=== PATIENT | female | born 1995 | race Two or more races ===

== ENCOUNTER 2018-01-08 21:23 | Emergency (ER) | payer MEDICAID, OTHER ==
[2018-01-08] MEDS ORDERED: ACETAMINOPHEN 325 MG TABLET PO ONE (21:42)
[2018-01-08] MEDS ORDERED: CYCLOBENZAPRINE HCL 10 MG TABLET PO ONE (23:12)
[2018-01-08] MEDS ORDERED: HYDROCODONE/ACETAMINOPHEN 5-325 MG (6 TAB/ER DISP) PO PRN (23:12)
--- NOTE | 2018-01-08 23:15 | ER Document Report ---
HPI - HPI Patient complains to provider of: Thigh pain Onset: Just prior to arrival Onset/Duration: Sudden Quality of pain: Sharp Pain Level: 3 Context: Patient states she was wrestling around with a friend and felt a sudden pull in the back of her right thigh. Patient complains of pain with ambulation since then. Associated Symptoms: Other - Right posterior thigh pain Exacerbated by: Standing, Movement, Walking Relieved by: Denies Similar symptoms previously: No Recently seen / treated by doctor: No - ROS ROS below otherwise negative: Yes Systems Reviewed and Negative: Yes All other systems reviewed and negative - CONSTITUTIONAL Constitutional: DENIES: Fever, Chills - NEURO Neurology: DENIES: Weakness - GASTROINTESTINAL Gastrointestinal: DENIES: Nausea - REPRODUCTIVE Reproductive: DENIES: : - MUSCULOSKELETAL Musculoskeletal: REPORTS: Extremity pain. 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 Denies: Hx Heart Attack, Hx Hypertension Pulmonary Medical History: Reports: Hx Pneumonia Denies: Hx Asthma, Hx Bronchitis, Hx COPD Neurological Medical History: Reports: Hx Migraine, Hx Seizures - 09/23/12 Musculoskeltal Medical History: Denies Hx Arthritis Psychiatric Medical History: Reports: Hx Anxiety, Hx Depression, Hx Post Traumatic Stress Disorder Past Surgical History: Reports: Hx Cholecystectomy, Hx Oral Surgery - Immunizations Immunizations up to date: Yes Hx Diphtheria, Pertussis, Tetanus Vaccination: Yes Vertical Provider Document - CONSTITUTIONAL Agree With Documented VS: Yes Exam Limitations: No Limitations General Appearance: WD/WN, No Apparent Distress - INFECTION CONTROL TRAVEL OUTSIDE OF THE [place] IN LAST 30 DAYS: No - HEENT HEENT: Atraumatic, Normocephalic - NECK Neck: Normal Inspection - RESPIRATORY Respiratory: No Respiratory Distress - CARDIOVASCULAR Pulses: Normal: Posterior tibial, Dorsalis pedis - BACK Back: Normal Inspection - MUSCULOSKELETAL/EXTREMETIES Musculoskeletal/Extremeties: MAEW, Tender - Right posterior thigh tenderness over biceps femoris, no deformity, no ecchymosis. Compartment soft to palpation , No Edema. negative: Eccymosis Notes: Tenderness increases with extension of right knee - NEURO Level of Consciousness: Awake, Alert, Appropriate Motor/Sensory: No Motor Deficit - DERM Integumentary: Warm, Dry, No Rash Discharge - Discharge Clinical Impression: Muscle strain Condition: Stable Disposition: HOME, SELF-CARE Instructions: Use of Crutches ([facility]), Muscle Relaxers ([facility]), Muscle Strain ([facility]) , Oral Narcotic Medication ([facility]) Additional Instructions: Return immediately for any new or worsening symptoms Followup with your primary care provider, call tomorrow to make a followup appointment Weightbearing as tolerated Follow-up with orthopedic doctor for any continued pain or problems Prescriptions: Cyclobenzaprine HCl [Flexeril 10 Mg Tablet] 10 mg PO TID #15 tablet Naproxen [Naprosyn 250 Nmg Tablet] 1 tab PO BID #14 tablet Referrals: [facility] ([facility]) [Provider Group] - Follow up as needed
[2018-01-09 00:01] VITALS: BP 114/70
== END 2018-01-09 00:01 | disposition home or self-care (01) ==
LOC: ER 21:23
DX: S76.911A Strain of unspecified muscles, fascia and tendons at thigh level, right thigh, initial encounter (principal); X50.0XXA Overexertion from strenuous movement or load, initial encounter; Z90.49 Acquired absence of other specified parts of digestive tract; Y93.83 Activity, rough housing and horseplay
CPT/HCPCS: 99283

== ENCOUNTER 2018-07-12 19:03 | Emergency (ER) | payer SELFPAY ==
[2018-07-12] MEDS ORDERED: KETOROLAC TROMETHAMINE INJ/PF 30 MG/1 ML SDV IV ONE (20:35)
[2018-07-12] MEDS ORDERED: ONDANSETRON HCL INJ/PF 4 MG/2 ML SDV IV ONE (20:35)
--- NOTE | 2018-07-12 20:39 | ER Document Report ---
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 Denies fevers. Subjective chills. Her porphyria attacks used to consist of bone pain and this feels similar to that but not exactly the same. She is currently out of care for her porphyria, does not know which kind of porphyria she has, and says that she has no other major medical problems. TRAVEL OUTSIDE OF THE [place] IN LAST 30 DAYS: No - Related Data Allergies/Adverse Reactions: No Known Allergies Allergy (Verified 07/12/18 19:08) Past Medical History - Social History Smoking Status: Never Smoker Family History: None - Past Medical History Cardiac Medical History: Denies: Hx Heart Attack, Hx Hypertension Pulmonary Medical History: Reports: Hx Pneumonia Denies: Hx Asthma, Hx Bronchitis, Hx COPD Neurological Medical History: Reports: Hx Migraine, Hx Seizures - 09/23/12 Renal/ Medical History: Denies: Hx Peritoneal Dialysis Musculoskeletal Medical History: Denies Hx Arthritis Psychiatric Medical History: Reports: Hx Anxiety, Hx Depression, Hx Post Traumatic Stress Disorder Past Surgical History: Reports: Hx Cholecystectomy, Hx Oral Surgery - Immunizations Immunizations up to date: Yes Hx Diphtheria, Pertussis, Tetanus Vaccination: Yes Review of Systems - Review of Systems Notes: REVIEW OF SYSTEMS GEN: Denies fever, positive chills ENT: Denies sore throat, nasal discharge, ear pain EYES: Denies blurry vision, eye pain, discharge CV: Left sided reproducible chest pain, palpitations, denies edema RESP: Denies cough, shortness of breath, wheezing GI: Denies abdominal pain, nausea, vomiting, diarrhea MSK: Myalgias, SKIN: Denies rash, skin lesions LYMPH: Denies swollen glands/lymph nodes NEURO: Denies headache, focal weakness or numbness, dizziness PSYCH: Denies depression, suicidal or homicidal ideation PHYSICAL EXAMINATION General: No acute distress, well-nourished Head: Atraumatic, normocephalic ENT: Mouth normal, oropharynx moist, mild tracheal erythema, no exudates or tonsillar enlargement Eyes: Conjunctiva normal, pupils equal, lids normal Neck: No JVD, supple, no guarding CVS: Normal rate, regular rhythm, no murmurs left chest tenderness without crepitus Resp: No resp distress, equal and normal breath sounds bilaterally GI: Nondistended, soft, no tenderness to palpation, no rebound or guarding Ext: No deformities, no edema, normal range of motion in upper and lower ext Back: No CVA or midline TTP Skin: No rash, warm Lymphatic: No lymphadeopathy noted Neuro: Awake, alert. Face symmetric. GCS 15. Physical Exam - Vital signs Vitals: Temp Pulse Resp BP Pulse Ox 99.8 F 125 H 18 108/42 L 98 07/12/18 19:25 07/12/18 19:25 07/12/18 19:25 07/12/18 19:25 07/12/18 19:25 Course - Re-evaluation Re-evalutation: Patient with a history of porphyria unknown type presents with myalgias nausea her typical migraines pelvic pain and back pain. She has some tachycardia but is afebrile. Her exam is reassuring in terms of meningitis mass or other neurologic catastrophe. Her lungs are clear and her chest pain is reproducible. EKG was done in triage which is negative. We will do chest x-ray to rule out pneumonia influenza swab, and treated with Toradol Reglan and fluids. 07/12/18 22:08 Patient's lab workup is negative except for a mild leukocytosis. She got much relief with Toradol and fluids but still had mild headache so was given Reglan. About 10:05 PM she became quite active the second anxious and was given Benadryl. 07/12/18 22:48 Patient sleeping, really after meds. Other than a mild white count her labs are normal including influenza. Her urinalysis is negative. Patient is now stable for discharge home and I did encourage her to seek care for her porphyria with the appropriate specialist. I have discussed with the patient there likely diagnosis, aftercare plan, follow-up plans and my usual and customary return precautions. They verbalized understanding of this. 07/12/18 22:49 - Vital Signs Vital signs: Temp Pulse Resp BP Pulse Ox 99.8 F 125 H 18 108/42 L 98 07/12/18 19:25 07/12/18 19:25 07/12/18 19:25 07/12/18 19:25 07/12/18 19:25 - Laboratory Result Diagrams: 07/12/18 21:07 Laboratory results interpreted by me: 07/12/18 21:07 WBC 14.8 H RDW 14.3 H Discharge - Discharge Clinical Impression: Myalgia Condition: Good Disposition: HOME, SELF-CARE Instructions: Viral Syndrome ([facility]) Additional Instructions: You need to be connected with care for your porphyria disease. Please take ibuprofen [id number] as needed for body aches, hydrate yourself with Gatorade and water. We referred you to a primary care clinic. He will need to go to a specialty care center such as [facility], or [facility] in [place] for specialty care for your porphyria. Prescriptions: Promethazine HCl [Phenergan 25 mg Tablet] 1 - 2 tab PO Q6H PRN #15 tablet PRN Reason: Referrals: [facility] [NO LOCAL MD] - Follow up as needed
[2018-07-12] MEDS: RINGERS SOLUTION,LACTATED 1,000 ML IV PRN ×2 (21:06→22:56)
--- NOTE | 2018-07-12 21:13 | RADIOLOGY REPORT (SQ) ---
XR CHEST 1 VIEW COMPLETED DATE/TME: 07/12/2018 20:39 CLINICAL HISTORY: 23 years Female sob CP COMPARISON: None. FINDINGS: The cardiomediastinal silhouette appears unremarkable. No consolidating infiltrates or pleural effusions. No pneumothorax. IMPRESSION: No acute abnormality is identified.
[2018-07-12 21:21] LABS: HEMATOCRIT 40.6 % (36.0-47.0); HEMOGLOBIN 13.4 g/dL (12.0-15.5); MEAN CORPUSCULAR HEMOGLOBIN 30.3 pg (27.0-33.4); MEAN CORPUSCULAR VOLUME 92 fl (80-97); PLATELET COUNT 250 10^3/uL (150-450); RED BLOOD COUNT 4.42 10^6/uL (3.72-5.28); RED CELL DISTRIBUTION WIDTH 14.3 % (11.5-14.0); WHITE BLOOD COUNT 14.8 10^3/uL (4.0-10.5)
[2018-07-12 21:38] LABS: A TYPE INFLUENZA AG NEGATIVE (NEGATIVE); B INFLUENZA AG NEGATIVE (NEGATIVE)
[2018-07-12] MEDS ORDERED: METOCLOPRAMIDE HCL INJ/PF 10 MG/2 ML SDV IV ONE (21:41)
--- NOTE | 2018-07-12 21:52 | EKG REPORT ---
SEVERITY:- BORDERLINE ECG - SINUS TACHYCARDIA PROBABLE LEFT ATRIAL ABNORMALITY : Confirmed by: Elysia Murphy MD 12-Jul-2018 21:51:53
[2018-07-12] MEDS ORDERED: DIPHENHYDRAMINE HCL 50 MG/ML VIAL ONE (22:03)
[2018-07-12] MEDS ORDERED: DIPHENHYDRAMINE HCL 50 MG/ML VIAL IV ONE (22:06)
[2018-07-13 00:07] VITALS: BP 103/57
== END 2018-07-12 23:55 | disposition home or self-care (01) ==
LOC: ER 19:03
DX: E80.20 Unspecified porphyria (principal); M79.10 Myalgia, unspecified site; R07.9 Chest pain, unspecified; R10.2 Pelvic and perineal pain; M54.9 Dorsalgia, unspecified; R10.30 Lower abdominal pain, unspecified; G43.909 Migraine, unspecified, not intractable, without status migrainosus; R11.0 Nausea; H53.149 Visual discomfort, unspecified; R68.83 Chills (without fever); R00.2 Palpitations; R00.0 Tachycardia, unspecified; D72.829 Elevated white blood cell count, unspecified
CPT/HCPCS: 93005; 99284; 96361; 96374; 96375; 36415; 84703; 85027; 87804; 71045; 93010; J1200; J1885; J2765; J2405; J7120

== ENCOUNTER 2018-08-12 17:23 | Emergency (ER) | payer SELFPAY ==
[2018-08-12 17:45] VITALS: BP 118/55
[2018-08-12] MEDS ORDERED: ALBUTEROL SULFATE 0.042% NEB (1.25 MG/3 ML) AMPUL NEB ONE (18:28)
[2018-08-12] MEDS ORDERED: GUAIFENESIN/CODEINE PHOS 100-10 MG/ 5 ML UDC PO ONE (18:30)
--- NOTE | 2018-08-12 18:30 | ER Document Report ---
ED General - General Chief Complaint: Nausea/Vomiting Stated Complaint: COUGH,CONGESTION,HEADACHE Time Seen by Provider: 08/12/18 18:28 Mode of Arrival: Ambulatory Information source: Patient Notes: History of Present Illness Chief Complaint: [cough] Cough quality= [dry], [without] sputum [No] hemoptysis [23 years old female presents today with cough and wheezing for the last few days associated with sore throat. Coughing so much sometimes she feel nauseous. No difficulty in breathing. Denies any chest pain. Denies any fever chills. ] History obtained from [patient] Symptoms began: [past few days] Onset: [gradual] Timing: [constant, lasts hours, persists] Intensity: [moderate] Location: [respiratory tract] Radiation: [none] Migration: [none] Aggravating factors: [none] Relieving factors: [none] Review of Systems : All other systems negative as reviewed. CONSTITUTIONAL No Fever. EYES No eye pain. ENT No sore throat CARDIOVASCULAR No chest pain. RESPIRATORY No SOB, No wheezing, No orthopnea, No pedal edema. GI No abdominal pain, no vomiting, no diarrhea. GENITOURINARY No dysuria. SKIN No rash. NEUROLOGIC No headache. MUSCULOSKELETAL No back pain, No calf pain, No calf swelling Physical Exam CONSTITUTIONAL Vital signs reviewed, Patient has normal respiratory rate, Well appearing, Patient appears comfortable, normal stature. HEAD Atraumatic, Normocephalic. EYES Eyes are normal to inspection. ENT Ears normal to inspection, Nose examination normal. Pharyngotonsillar mucosa was erythematous NECK No jugular venous distention. RESPIRATORY CHEST Breath sounds [bilateral scattered expiratory wheezing], No respiratory distress. CARDIOVASCULAR RRR, No murmurs, Normal S1 S2, No rub, No gallop. ABDOMEN Abdomen is nontender, No masses, Bowel sounds normal, No distension, No peritoneal signs. BACK Normal inspection. UPPER EXTREMITY Inspection normal. LOWER EXTREMITY Inspection normal. NEURO No facial droop, normal speech. SKIN Skin is warm, Skin is dry, Skin is normal color. PSYCHIATRIC Normal affect. TRAVEL OUTSIDE OF THE [place] IN LAST 30 DAYS: No - HPI Notes: Dictated - Related Data Allergies/Adverse Reactions: metoclopramide [From Reglan] Adverse Reaction (Verified 08/12/18 18:22) Past Medical History - Social History Smoking Status: Never Smoker Chew tobacco use (# tins/day): No Frequency of alcohol use: Occasional Drug Abuse: None Lives with: Family Family History: None, Reviewed & Not Pertinent Patient has suicidal ideation: No Patient has homicidal ideation: No - Past Medical History Cardiac Medical History: Denies: Hx Heart Attack, Hx Hypertension Pulmonary Medical History: Reports: Hx Pneumonia Denies: Hx Asthma, Hx Bronchitis, Hx COPD Neurological Medical History: Reports: Hx Migraine, Hx Seizures - 09/23/12 Renal/ Medical History: Denies: Hx Peritoneal Dialysis Musculoskeletal Medical History: Denies Hx Arthritis Psychiatric Medical History: Reports: Hx Anxiety, Hx Depression, Hx Post Traumatic Stress Disorder Past Surgical History: Reports: Hx Cholecystectomy, Hx Oral Surgery - Immunizations Immunizations up to date: Yes Hx Diphtheria, Pertussis, Tetanus Vaccination: Yes Review of Systems - Review of Systems Notes: Dictated Physical Exam - Vital signs Vitals: Temp Pulse Resp BP Pulse Ox 98.4 F 79 16 118/55 L 100 08/12/18 17:43 08/12/18 17:43 08/12/18 17:43 08/12/18 17:43 08/12/18 17:43 - Notes Notes: Dictated Course - Vital Signs Vital signs: Temp Pulse Resp BP Pulse Ox 98.4 F 79 16 118/55 L 100 08/12/18 17:43 08/12/18 17:43 08/12/18 17:43 08/12/18 17:43 08/12/18 17:43 Discharge - Discharge Clinical Impression: Acute asthmatic bronchitis Pharyngitis Qualifiers: Pharyngitis/tonsillitis etiology: unspecified etiology Qualified Code(s): J02.9 - Acute pharyngitis, unspecified Condition: Fair Disposition: HOME, SELF-CARE Instructions: Bronchitis With Bronchospasm (Wheezing) ([facility]) Prescriptions: Albuterol Sulfate [Proair Hfa Inhalation Aerosol 8.5 gm Mdi] 2 puff IH Q4 PRN # 1 mdi PRN Reason: Azithromycin [Zithromax Tri-Sam] 500 mg PO DAILY #3 tablet Hydrocodone/Chlorphen P-Stirex [Tussionex Pennkinetic Susp] 5 ml PO BID PRN #60 margarito.er.12h PRN Reason: Prednisone [Sterapred Ds] 1 pkg PO ASDIR PRN 6 Days tab.ds.pk PRN Reason:
== END 2018-08-12 19:55 | disposition home or self-care (01) ==
LOC: ER 17:23
DX: J02.9 Acute pharyngitis, unspecified (principal); J45.909 Unspecified asthma, uncomplicated; R11.2 Nausea with vomiting, unspecified; R05 Cough; R09.81 Nasal congestion; R51 Headache
CPT/HCPCS: 94640; 99283; 87070; 87880; J3490